=== PATIENT | male | born 1955 | race Caucasian/White ===

== ENCOUNTER 2020-03-21 09:36 | Emergency (ER) | payer MEDICARE, BC ==
[2020-03-21] MEDS: Ketorolac 30 MG/ML SDV IVPUSH ONE (09:50)
[2020-03-21 10:14] LABS: CHLORIDE,CL 96 mEq/L (98-106); SODIUM,NA 134 mEq/L (136-145)
[2020-03-21] MEDS: fentaNYL 100 MCG/2 ML SDV IVPUSH ONE ×2 (10:24→10:25)
[2020-03-21] MEDS: Metoprolol Tartrate 5 MG/5 ML SDV IVPUSH ONE (10:47)
[2020-03-21] MEDS: Acetaminophen/oxyCODONE 325-5 MG Tab PO ONE (11:03)
[2020-03-21] MEDS: Labetalol 100 MG/20 ML MDV IVPUSH ONE ×2 (11:23→12:01)
[2020-03-21] MEDS: Morphine 2 MG/ML Syringe IVPUSH ONE ×2 (11:28→12:54)
--- NOTE | 2020-03-21 12:12 | EDM.PDOC ---
ED HPI GENERAL MEDICAL PROBLEM - General Chief Complaint: General Stated Complaint: MUSCLE ACHES Time Seen by Provider: 03/21/20 10:00 Source of Information: Reports: Patient History Limitations: Reports: No Limitations - History of Present Illness INITIAL COMMENTS - FREE TEXT/NARRATIVE: Tico is a 65 yo male with PMH significant for atrial fibrillation anticoagulated on Xarelto and hypertension, who presents to the ED with c/o pain radiating down his back. Reports he had sudden onset of severe posterior headache around 6 pm last evening, lasting throughout the evening. Reports he was unable to sleep due to the pain. He also reports throughout the evening he had an "upset stomach." Does report some mild pain in his RUQ underneath his right ribs. Denies any N/V/D. This morning he reports onset up mid neck pain that gradually progressed from his neck down to his lower back. At time of presentation, patient reports headache and upper back pain has seemingly resolved, but now he has excruciating low back pain. Throughout ED visit, patient reports his bilateral lower extremities have gone numb. Has waxing and waning episodes of weakness. No other neurological symptoms. No weakness or paresthesias of upper extremities. No speech deficits, vision changes, cognitive impairment. Onset Date: 03/20/20 Onset Time: 18:00 Duration: Getting Worse, Waxing/Waning Location: Reports: Back, Lower Extremity, Left, Lower Extremity, Right Quality: Reports: Sharp, Stabbing Severity: Severe Improves with: Reports: None Associated Symptoms: Reports: Headaches, Weakness. 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 Bilateral Back Pain Score (Numeric/FACES): 9 - Related Data Allergies Allergy/AdvReac Type Severity Reaction Status Date / Time No Known Allergies Allergy Verified 03/21/20 09:41 Home Meds: Home Meds Glucosam/Chondr/Collagn/Hyalur [Glucosamine & Chondroitin Cap] 1 each PO DAILY 12/17/15 [History] Metoprolol Tartrate [Lopressor] 100 mg PO DAILY 12/17/15 [History] Multivitamin [Multi-Vitamin Daily] 1 each PO DAILY 12/17/15 [History] [place]-3/DHA/Epa/Fish Oil [Fish Oil 1,400 MG Softgel] 1 each PO DAILY 12/17/15 [ History] Rivaroxaban [Xarelto] 1 tab PO DAILY 12/17/15 [History] Ubidecarenone [Co Q-10] 100 mg PO DAILY 12/17/15 [History] hydroCHLOROthiazide [Hydrochlorothiazide] 25 mg PO DAILY 03/21/20 [History] Past Medical History Cardiovascular History: Reports: Afib, High Cholesterol, Hypertension Social & Family History - Tobacco Use Smoking Status *Q: Never Smoker - Caffeine Use Caffeine Use: Reports: None - Recreational Drug Use Recreational Drug Use: No ED ROS GENERAL - Review of Systems Review Of Systems: See Below Constitutional: Reports: Malaise, Weakness. Denies: Fever, Fatigue, Decreased Appetite HEENT: Reports: No Symptoms. Denies: Vision Change Respiratory: Reports: No Symptoms. Denies: Shortness of Breath, Wheezing, Pleuritic Chest Pain, Cough, Sputum Cardiovascular: Reports: Blood Pressure Problem. Denies: Chest Pain, Dyspnea on Exertion, Edema, Lightheadedness, Palpitations, Syncope Endocrine: Denies: Fatigue GI/Abdominal: Reports: Abdominal Pain. Denies: Constipation, Diarrhea, Decreased Appetite, Hematemesis, Hematochezia, Melena, Nausea, Vomiting : Reports: No Symptoms. Denies: Frequency, Incontinence, Urgency, Urinary Retention Musculoskeletal: Reports: Neck Pain, Leg Pain, Muscle Stiffness Skin: Reports: No Symptoms Neurological: Reports: Headache, Numbness, Paresthesia, Tingling, Difficulty Walking, Weakness. Denies: Confusion, Dizziness, Tremors Psychiatric: Reports: No Symptoms Hematologic/Lymphatic: Reports: No Symptoms Immunologic: Reports: No Symptoms ED EXAM, GENERAL - Physical Exam Exam: See Below Exam Limited By: No Limitations General Appearance: Alert, WD/WN, Moderate Distress Eye Exam: Bilateral Eye: EOMI, Normal Fundi, Normal Inspection, PERRL Ears: Normal External Exam, Normal Canal, Hearing Grossly Normal, Normal TMs Nose: Normal Inspection, Normal Mucosa, No Blood Throat/Mouth: Normal Inspection, Normal Lips, Normal Teeth, Normal Gums, Normal Oropharynx, Normal Voice, No Airway Compromise Head: Atraumatic, Normocephalic Neck: Normal Inspection, Supple, Non-Tender, Full Range of Motion. No: Lymphadenopathy (L), Lymphadenopathy (R), Tender Lateral, Tender Midline Respiratory/Chest: No Respiratory Distress, Lungs Clear, Normal Breath Sounds, No Accessory Muscle Use, Chest Non-Tender Cardiovascular: Normal Peripheral Pulses, No Murmur, Tachycardia, Irregularly Irregular, Other (trace edema RLE) Peripheral Pulses: 2+: Radial (L), Radial (R), Posterior Tibial (L), Posterior Tibial (R), Dorsalis Pedis (L), Dorsalis Pedis (R) GI/Abdominal: Normal Bowel Sounds, Soft, Non-Tender, No Organomegaly, No Distention, No Abnormal Bruit, No Mass Back Exam: Normal Inspection, Decreased Range of Motion, Muscle Spasm. No: CVA Tenderness (L), CVA Tenderness (R), Paraspinal Tenderness, Vertebral Tenderness Extremities: Normal Inspection, Non-Tender, Pedal Edema (trace RLE), Leg Pain, Other (waxing and waning weakness BLE, see note) Neurological: Alert, Oriented, CN II-XII Intact, Normal Cognition, Abnormal Gait , Sensory/Motor Deficit (waxing and waning weakness BLE, initialyl strength 4/5 with episodes 2/5) Psychiatric: Normal Affect, Normal Mood Skin Exam: Warm, Dry, Intact, Normal Color, No Rash Lymphatic: No Adenopathy Course - Vital Signs Last Recorded V/S: Last Vital Signs Temp 95.8 F L 03/21/20 12:44 Pulse 120 H 03/21/20 12:44 Resp 18 03/21/20 12:44 BP 165/110 H 03/21/20 12:44 Pulse Ox 98 03/21/20 12:44 - Orders/Labs/Meds Orders: Active Orders 24 hr Category Date Time Status EKG Documentation Completion [RC] STAT Care 03/21/20 10:05 Active Ang Abdomen [CT] Stat Exams 03/21/20 11:08 Ordered CTA Chest W WO Contrast [Ang Chest] [CT] Stat Exams 03/21/20 11:08 Ordered Head wo Cont [CT] Stat Exams 03/21/20 11:06 Taken CORONAVIRUS COVID-19 PCR PHL Routine Lab 03/21/20 10:00 Received UA W/SEGUN RFLX IF INDICATED [URIN] Stat Lab 03/21/20 09:44 Ordered Labs: Laboratory Tests 03/21/20 03/21/20 03/21/20 Range/Units 10:00 10:00 10:00 WBC 13.7 H (5.0-10.0) 10^3/uL RBC 5.50 (4.50-6.00) 10^6/uL Hgb 17.0 (14.0-18.0) g/dL Hct 47.5 (40.0-54.0) % MCV 86.4 (82.0-94.0) fL MCH 30.9 (27.0-32.0) pg MCHC 35.8 (33.0-38.0) g/dL RDW Coeff of Aníbal 12.1 (11.0-15.0) % Plt Count 252 (150-400) 10^3/uL Neut % (Auto) 72.1 (35-85) % Lymph % (Auto) 19.4 (10-55) % Jewell % (Auto) 7.9 (0-16) % Eos % (Auto) 0.4 (0-5) % Baso % (Auto) 0.2 (0-3) % Neut # (Auto) 9.87 H (1.80-7.00) 10^3/uL Lymph # (Auto) 2.66 (1.00-4.80) 10^3/uL Jewell # (Auto) 1.08 H (0.00-0.80) 10^3/uL Eos # (Auto) 0.05 (0.00-0.45) 10^3/uL Baso # (Auto) 0.03 10^3/uL Sodium 134 L (136-145) mEq/L Potassium 3.2 L (3.5-5.0) mEq/L Chloride 96 L (98-106) mEq/L Carbon Dioxide 27 (21-32) mmol/L BUN 13 (7-18) mg/dL Creatinine 1.1 (0.7-1.3) mg/dL Est Cr Clr Drug Dosing 65.17 mL/min Estimated GFR (MDRD) > 60 (>=60) mL/min Glucose 148 H D (75-99) mg/dL Calcium 9.5 (8.4-10.1) mg/dL Magnesium 1.9 (1.8-2.4) mg/dL Total Bilirubin 0.6 (0.0-1.0) mg/dL AST 26 (15-37) U/L ALT 35 (12-78) U/L Alkaline Phosphatase 87 (46-116) U/L Lactate Dehydrogenase 200 H (100-190) U/L Creatine Kinase 74 (35-232) U/L Troponin I < 0.017 (0.00-0.06) ng/mL C-Reactive Protein 0.5 (0.2-0.8) mg/dL Total Protein 7.8 (6.4-8.2) g/dL Albumin 3.8 (3.4-5.0) g/dL Meds: Medications Discontinued Medications Generic Name Dose Route Start Last Admin Trade Name Freq PRN Reason Stop Dose Admin Fentanyl 50 mcg 03/21/20 10:14 03/21/20 10:24 Sublimaze IVPUSH 03/21/20 10:15 50 mcg ONETIME ONE Administration Fentanyl 50 mcg 03/21/20 10:27 03/21/20 10:25 Sublimaze IVPUSH 03/21/20 10:28 50 mcg ONETIME ONE Administration Iopamidol 100 ml 03/21/20 13:25 [id number] (76%) IVPUSH 03/21/20 13:26 ONETIME ONE Ketorolac Tromethamine 30 mg 03/21/20 09:58 03/21/20 09:50 Toradol IVPUSH 03/21/20 09:59 30 mg ONETIME ONE Administration Labetalol HCl 10 mg 03/21/20 11:19 03/21/20 11:23 Normodyne IVPUSH 03/21/20 11:20 10 mg ONETIME ONE Administration Protocol Labetalol HCl 10 mg 03/21/20 12:00 03/21/20 12:01 Normodyne IVPUSH 03/21/20 12:01 10 mg ONETIME ONE Administration Protocol Metoprolol Tartrate 2.5 mg 03/21/20 10:40 03/21/20 10:47 Lopressor IVPUSH 03/21/20 10:41 2.5 mg ONETIME ONE Administration Morphine Sulfate 4 mg 03/21/20 11:19 03/21/20 11:28 Morphine IVPUSH 03/21/20 11:20 4 mg ONETIME ONE Administration Morphine Sulfate 2 mg 03/21/20 12:51 03/21/20 12:54 Morphine IVPUSH 03/21/20 12:52 2 mg ONETIME ONE Administration Orphenadrine Citrate 60 mg 03/21/20 10:27 03/21/20 10:32 Norflex IV 03/21/20 10:28 60 mg STAT ONE Administration Oxycodone/Acetaminophen 1 tab 03/21/20 10:56 03/21/20 11:03 Percocet 325-5 Mg PO 03/21/20 10:57 1 tab ONETIME ONE Administration - Radiology Interpretation Free Text/Narrative:: No acute findings on head CT or CTA of chest, abdomen, or pelvis. CT Results Date: 03/21/20 CT Results Time: 12:45 - Re-Assessments/Exams Free Text/Narrative Re-Assessment/Exam: Discussed risks and benefits of transfer with patient. Risks of transfer include worsening of condition, , and helicopter crash enroute. Benefits of transfer include higher level of care with neurologic consultation. Risks of nontransfer include worsening of condition, , and no interventional therapy. Benefits of nontransfer include convenience. Patient verbalized understanding and was agreeable with air transfer to [facility]. Departure - Departure Time of Disposition: 12:46 Disposition: DC/Tfer to [facility] 02 Condition: Undetermined Clinical Impression: Weakness of both lower limbs, Paresthesia of bilateral legs Headache Qualifiers: Headache type: unspecified Headache chronicity pattern: acute headache Back pain Qualifiers: Back pain location: low back pain Chronicity: acute Back pain laterality: bilateral Sciatica laterality: bilateral sciatica - Discharge Information *PRESCRIPTION DRUG MONITORING PROGRAM REVIEWED*: Not Applicable *COPY OF PRESCRIPTION DRUG MONITORING REPORT IN PATIENT ALIYA: Not Applicable Referrals: Marjan Vuong, [facility] [employer] [Primary Care Provider] - Forms: ED Department Discharge Sepsis Event Note - Evaluation Sepsis Screening Result: No Definite Risk - Focused Exam Vital Signs: Vital Signs Temp Pulse Pulse Resp BP BP BP 03/21/20 12:44 95.8 F L 120 H 18 165/110 H 03/21/20 12:17 140/95 H 03/21/20 12:10 128/101 H 03/21/20 11:50 160/112 H 03/21/20 11:30 94.3 F L 128 H 18 172/118 H 168/122 H 03/21/20 11:01 172/122 H 03/21/20 10:47 126 H 152/108 H 152/108 H 03/21/20 09:37 97.1 F 117 H 18 156/104 H Pulse Ox 03/21/20 12:44 98 03/21/20 12:17 03/21/20 12:10 03/21/20 11:50 03/21/20 11:30 98 03/21/20 11:01 97 03/21/20 10:47 03/21/20 09:37 96 Date Exam was Performed: 03/21/20 Time Exam was Performed: 13:37 - Problem List & Annotations (1) Back pain SNOMED Code(s): 856238605 Code(s): M54.9 - DORSALGIA, UNSPECIFIED Status: Acute Current Visit: Yes Qualifiers: Back pain location: low back pain Chronicity: acute Back pain laterality : bilateral Sciatica laterality: bilateral sciatica (2) Paresthesia of bilateral legs SNOMED Code(s): 319193190, 89643191782554569, 20625469710883700 Code(s): R20.2 - PARESTHESIA OF SKIN Status: Acute Current Visit: Yes (3) Hypertension SNOMED Code(s): 72393916 Code(s): I10 - ESSENTIAL (PRIMARY) HYPERTENSION Status: Acute Current Visit: Yes Qualifiers: Hypertension type: essential hypertension Qualified Code(s): I10 - Essential (primary) hypertension (4) Weakness of both lower limbs SNOMED Code(s): 5866616 Code(s): R29.898 - OTH SYMPTOMS AND SIGNS INVOLVING THE MUSCULOSKELETAL SYSTEM Status: Acute Priority: High Current Visit: Yes (5) Atrial fibrillation with rapid ventricular response SNOMED Code(s): 297643382084507 Code(s): I48.91 - UNSPECIFIED ATRIAL FIBRILLATION Status: Acute Current Visit: Yes (6) Headache SNOMED Code(s): 08166201 Code(s): R51 - HEADACHE Status: Acute Current Visit: Yes Qualifiers: Headache type: unspecified Headache chronicity pattern: acute headache - My Orders Last 24 Hours: My Active Orders 03/21/20 09:44 UA W/SEGUN RFLX IF INDICATED [URIN] Stat 03/21/20 10:00 CORONAVIRUS COVID-19 PCR PHL Routine 03/21/20 10:05 EKG Documentation Completion [RC] STAT 03/21/20 11:06 Head wo Cont [CT] Stat 03/21/20 11:08 Ang Abdomen [CT] Stat CTA Chest W WO Contrast [Ang Chest] [CT] Stat - Assessment/Plan Last 24 Hours: My Active Orders 03/21/20 09:44 UA W/SEGUN RFLX IF INDICATED [URIN] Stat 03/21/20 10:00 CORONAVIRUS COVID-19 PCR PHL Routine 03/21/20 10:05 EKG Documentation Completion [RC] STAT 03/21/20 11:06 Head wo Cont [CT] Stat 03/21/20 11:08 Ang Abdomen [CT] Stat CTA Chest W WO Contrast [Ang Chest] [CT] Stat Assessment:: Back Pain Weakness and Paresthesias of BLE Headache Hypertension Atrial Fibrillation with RVR Plan: 65 yo male who presented to ED with c/o low back pain. Initially upon presentation he was ambulatory, but appeared uncomfortable. Was making frequent movements in attempt to get comfortable. Seemed to have less pain in position. Was given 30 mg Toradol and 60 mg IV Norflex without any improvement in pain. After approximately 45 minutes in ED, patient developed numbness and weakness in BLE, R slightly worse than L, which initially did improve and then recurred multiple times throughout ED visit. Was very difficult to manage patient's pain. Patient then developed worsening of lower back pain with saddle paresthesia and flaccid paralysis of BLE. No loss of bowel/bladder. Patient was given total of 100 mcg fentanyl, 30 mg Toradol, 60 mg Norflex, 5 mg Percocet and 6 mg morphine throughout ED stay. Did have improvement in pain with morphine and was then able to rest comfortably enough to have CT. Patient hypertensive upon presentation. EKG revealed atrial fibrillation with RVR, 120's-140s throughout stay. Did receive 2.5 mg Lopressor and total of 20 mg labetalol. BP improved some for short time, but was elevated again upon arrival of air med crew. Labs unremarkable aside from WBC 13.7, L 3.2, and Na 134. Cardiac enzymes negative. Once patient developed worsening weakness/numbness of BLE, consulted with Nomi Tyler who assessed the patient over the camera. Recommended CT head as well as CTA chest, abdomen, pelvis with worsening weakness of BLE to r/u dissection. CT head, CTA chest/abdomen/pelvis all negative for acute changes. Patient denies any FH of MS or any other neurologic conditions. Has not had any known sick contacts. Did recently have 30+ hr car ride home from [place]. Returned home Tuesday. Has been quarantined at his home in [place] for the past month and then quarant[place] since arriving home Tuesday. Has no COVID- 19 symptoms outside of headache. Did opt to screen patient given recent travel. Denies any injury. Consulted with [facility], who recommended STAT MRI brain, cervical thoracic and lumbar spine. Patient unable to sit still due to pain. We are unable to complete sedated MRI here. Requested transfer. Then consulted with Dr. Jimenez ED physician, who accepted the patient for transfer. Will arrange for helicopter transfer given saddle paresthesia and flaccid paralysis of BLE. Patient will be transferred to [facility] via [facility]. Patient stable upon discharge. Did have ongoing numbness and weakness in BLE as well as saddle paresthesia.
[2020-03-21 12:44] VITALS: BP 165/110; PULSE 120
[2020-03-21] MEDS: Iopamidol 755 Mg/ML 100 ML Bottle IVPUSH ONE (13:42)
== END 2020-03-21 13:08 ==
LOC: CC.ED 09:36
DX: M54.42 Lumbago with sciatica, left side (principal); M54.41 Lumbago with sciatica, right side; R51 Headache; M62.81 Muscle weakness (generalized); R20.2 Paresthesia of skin; Z79.01 Long term (current) use of anticoagulants; I10 Essential (primary) hypertension; Z79.899 Other long term (current) drug therapy; I48.91 Unspecified atrial fibrillation
CPT/HCPCS: 36415; 70450; 71275; 74175; 80053; 82550; 83615; 83735; 84484; 85025; 86140; 93005; 96374; 96375; 96376; 99285; A9270; J1885; J2270; J2360; J3010; J3490; Q9967; U0002; 99284

== ENCOUNTER 2021-05-04 21:57 | Emergency (ER) | payer MEDICARE, BC ==
--- NOTE | 2021-05-04 22:27 | EDM.PDOC ---
ED HPI GENERAL MEDICAL PROBLEM - General Chief Complaint: General Stated Complaint: SOB Time Seen by Provider: 05/04/21 22:25 Source of Information: Reports: Patient History Limitations: Reports: No Limitations - History of Present Illness INITIAL COMMENTS - FREE TEXT/NARRATIVE: Tico is a 66 year old male who presents to the ED with c/o shortness of breath and cough. He reports that starting about 2 days ago he began coughing. Reports throughout the day today he has gotten more short of breath. Reports when he lies down, cough is worse and he feels more short of breath. He denies any chest pain, fever, dizziness, weakness. Has had the chills. Does have hx of atrial fibrillation. Is not currently anticoagulated. Xarelto was stopped in the past due to spinal hematoma. He has a Watchman device now. He has been using Robitussin at home for cough. Onset Date: 05/02/21 Duration: Getting Worse Location: Reports: Chest Associated Symptoms: Reports: Cough, cough w sputum, Fever/Chills (chills, no fever), Shortness of Breath. Denies: Chest Pain, Diaphoresis, Malaise, Nausea/Vomiting, Syncope, Weakness - Related Data Allergies Allergy/AdvReac Type Severity Reaction Status Date / Time No Known Allergies Allergy Verified 05/04/21 21:59 Home Meds: Home Meds Metoprolol Tartrate [Lopressor] 25 mg PO DAILY 12/17/15 [History] Multivitamin [Multi-Vitamin Daily] 1 each PO DAILY 12/17/15 [History] Aspirin [Halfprin] 81 mg PO DAILY 05/04/21 [History] Doxycycline [Vibra-Tabs] 100 mg PO Q12HR 7 Days #14 tab 05/04/21 [Rx] Levothyroxine Sodium [Synthroid] 25 mcg PO DAILY 05/04/21 [History] Loratadine [Claritin] 10 mg PO DAILY PRN 05/04/21 [History] Pregabalin [Lyrica] 150 mg PO BID 05/04/21 [History] predniSONE [Prednisone] 20 mg PO DAILY #5 tablet 05/04/21 [Rx] Past Medical History Cardiovascular History: Reports: Afib, High Cholesterol, Hypertension Neurological History: Reports: Other (See Below) (spinal hematoma) - Past Surgical History Musculoskeletal Surgical History: Reports: Other (See Below) Other Musculoskeletal Surgeries/Procedures:: back surgury for hematoma Social & Family History - Family History Family Medical History: No Pertinent Family History - Caffeine Use Caffeine Use: Reports: None ED ROS GENERAL - Review of Systems Review Of Systems: See Below Constitutional: Reports: Chills HEENT: Reports: Rhinitis Respiratory: Reports: Shortness of Breath, Cough, Sputum. Denies: Wheezing, Pl euritic Chest Pain, Hemoptysis Cardiovascular: Reports: Dyspnea on Exertion, Edema, Orthopnea. Denies: Chest Pain Endocrine: Reports: Fatigue GI/Abdominal: Reports: No Symptoms : Reports: No Symptoms Musculoskeletal: Reports: No Symptoms Skin: Reports: No Symptoms Neurological: Reports: No Symptoms Psychiatric: Reports: No Symptoms Hematologic/Lymphatic: Reports: No Symptoms Immunologic: Reports: No Symptoms ED EXAM, GENERAL - Physical Exam Exam: See Below Exam Limited By: No Limitations General Appearance: Alert, WD/WN, No Apparent Distress Eye Exam: Bilateral Eye: EOMI, Normal Fundi, Normal Inspection, PERRL Nose: Nasal Swelling, Nasal Drainage Throat/Mouth: Normal Inspection, Normal Lips, Normal Teeth, Normal Gums, Normal Oropharynx, Normal Voice, No Airway Compromise Head: Atraumatic, Normocephalic Neck: Normal Inspection, Supple, Non-Tender, Full Range of Motion Respiratory/Chest: No Respiratory Distress, No Accessory Muscle Use, Chest Non- Tender, Decreased Breath Sounds (bialteral bases), Crackles (LLL) Cardiovascular: Normal Peripheral Pulses, Tachycardia, Irregularly Irregular GI/Abdominal: Normal Bowel Sounds, Soft, Non-Tender, No Organomegaly, No Distention, No Abnormal Bruit, No Mass Back Exam: Normal Inspection, Full Range of Motion, NT Extremities: Normal Inspection, Normal Range of Motion, Normal Capillary Refill, Pedal Edema (trace RLE) Neurological: Alert, Oriented, CN II-XII Intact, Normal Cognition, Normal Gait, Normal Reflexes, No Motor/Sensory Deficits Psychiatric: Normal Affect, Normal Mood Skin Exam: Warm, Dry, Intact, Normal Color, No Rash Lymphatic: No Adenopathy Course - Vital Signs Last Recorded V/S: Last Vital Signs Temp 97.2 F 05/04/21 22:22 Pulse 115 H 05/04/21 22:22 Resp 22 H 05/04/21 22:22 BP 169/113 H 05/04/21 22:22 Pulse Ox 92 L 05/04/21 22:22 - Orders/Labs/Meds Orders: Active Orders 24 hr Category Date Time Status Chest 2V [CR] Stat Exams 05/04/21 22:14 Taken Labs: Laboratory Tests 05/04/21 05/04/21 05/04/21 Range/Units 22:28 22:28 22:28 WBC 9.0 (4.0-11.0) 10^3/uL RBC 5.19 (4.50-6.00) x10^6/uL Hgb 14.4 (14.0-18.0) g/dL Hct 43.4 (42.0-52.0) % MCV 83.6 (83.0-97.0) fL MCH 27.7 (27.0-32.0) pg MCHC 33.2 (32.0-36.0) g/dL RDW Coeff of Aníbal 13.9 (11.0-15.0) % Plt Count 198 (150-400) 10^3/uL Immature Gran % (Auto) 0.1 (0.0-4.9) % Neut % (Auto) 84.0 H (41-71) % Lymph % (Auto) 9.4 L (24-44) % Evans % (Auto) 6.1 (0-10) % Eos % (Auto) 0.1 (0-6) % Baso % (Auto) 0.3 (0-1) % Neut # (Auto) 7.56 (1.80-8.00) x10^3/uL Lymph # (Auto) 0.85 (0.60-5.00) 10^3/uL Evans # (Auto) 0.55 (0.00-1.50) 10^3/uL Eos # (Auto) 0.01 (0.00-1.50) 10^3/uL Baso # (Auto) 0.03 (0.00-0.50) 10^3/uL Immature Gran # (Auto) 0.01 (0.00-0.49) 10^3/uL Sodium 134 L (136-145) mEq/L Potassium 4.5 (3.5-5.0) mEq/L Chloride 96 L (98-106) mEq/L Carbon Dioxide 29 (21-32) mmol/L BUN 11 (7-18) mg/dL Creatinine 1.1 (0.7-1.3) mg/dL Est Cr Clr Drug Dosing 66.36 mL/min Estimated GFR (MDRD) > 60 (>=60) mL/min Glucose 124 H (75-99) mg/dL Calcium 8.3 L (8.4-10.1) mg/dL Total Bilirubin 0.7 (0.0-1.0) mg/dL AST 19 (15-37) U/L ALT 24 (12-78) U/L Alkaline Phosphatase 91 (46-116) U/L Lactate Dehydrogenase 175 (100-190) U/L Creatine Kinase 69 (35-232) U/L Troponin I < 0.017 (0.00-0.06) ng/mL C-Reactive Protein 7.7 H (0.2-0.8) mg/dL Total Protein 7.2 (6.4-8.2) g/dL Albumin 3.3 L (3.4-5.0) g/dL SARS CoV-2 RNA Rapid LALO Negative (NEGATIVE) Meds: Medications Discontinued Medications Generic Name Dose Route Start Last Admin Trade Name Freq PRN Reason Stop Dose Admin Albuterol/Ipratropium 3 ml 05/04/21 23:03 05/04/21 23:14 Albuterol/Ipratropium 3.0-0.5 Mg/3 Ml Neb Soln NEB 05/04/21 23:04 3 ml ONETIME ONE Administration Ceftriaxone Sodium 1 gm 05/04/21 23:02 05/04/21 23:14 Ceftriaxone 1 Gm Vial IVPUSH 05/04/21 23:03 1 gm STAT STA Administration Methylprednisolone Sodium Succinate 62.5 mg 05/04/21 23:02 05/04/21 23:14 Methylprednisolone Sodium Succinate 125 Mg/2 Ml Sdv IVPUSH 05/04/21 23:03 62.5 mg STAT STA Administration - Re-Assessments/Exams Free Text/Narrative Re-Assessment/Exam: 05/04/21 23:02 Patient declines admission. Wishes to go home. Departure - Departure Time of Disposition: 23:03 Disposition: Home, Self-Care 01 Condition: Fair Clinical Impression: Pneumonitis, Atrial fibrillation with rapid ventricular response Hypertension Qualifiers: Hypertension type: essential hypertension Qualified Code(s): I10 - Essential (primary) hypertension - Discharge Information *PRESCRIPTION DRUG MONITORING PROGRAM REVIEWED*: Not Applicable *COPY OF PRESCRIPTION DRUG MONITORING REPORT IN PATIENT ALIYA: Not Applicable Prescriptions: predniSONE [Prednisone] 20 mg PO DAILY #5 tablet Doxycycline [Vibra-Tabs] 100 mg PO Q12HR 7 Days #14 tab Instructions: Pneumonitis Referrals: Rodolfo Turner MD [Primary Care Provider] - Forms: ED Department Discharge Additional Instructions: - Start antibiotic & steroid tomorrow. Can be picked up at pharmacy - Rest and push fluids - May continue to use Robitussin as needed for cough - Recommend increase Metoprolol to 50 mg daily as pulse is high - Follow up for recheck tomorrow if symptoms persist otherwise recheck in the next 2-3 days to ensure BP and pulse normalized - Return to ED for emergent needs - Problem List & Annotations (1) Atrial fibrillation with rapid ventricular response SNOMED Code(s): 406788620757630 Code(s): I48.91 - UNSPECIFIED ATRIAL FIBRILLATION Status: Acute (2) Hypertension SNOMED Code(s): 13348197 Code(s): I10 - ESSENTIAL (PRIMARY) HYPERTENSION Status: Acute Qualifiers: Hypertension type: essential hypertension Qualified Code(s): I10 - Essential (primary) hypertension (3) Pneumonitis SNOMED Code(s): 878137481 Code(s): J18.9 - PNEUMONIA, UNSPECIFIED ORGANISM Status: Acute - Problem List Review Problem List Initiated/Reviewed/Updated: Yes - My Orders Last 24 Hours: My Active Orders 05/04/21 22:14 Chest 2V [CR] Stat - Assessment/Plan Last 24 Hours: My Active Orders 05/04/21 22:14 Chest 2V [CR] Stat Assessment:: Afib with RVR Hypertension Pneumonitis Plan: 66 yo male presents to the clinic with c/o cough and shortness of breath for the past few days. Lab work reveals WBC 9.0, CRP 7.7, Na 134. Covid negative. Patient O2 sat upon arrival 93%. Did go to 91% with minimal activity. CXR negative for infiltrate. EKG reveals Afib with RVR. Rates in low 100s. BP elevated. Recommend patient be admitted for ongoing medical management. Patient declines admission and wishes to go home with outpatient therapy. Will cover patient for pneumonia. Meds as directed. Recommend he increase his metoprolol to 50 mg daily. Recommend close follow up with PCP. Needs recheck of pulse, BP and O2 sats in the next few days. He is advised to return for reevaluation if symptoms worsen or he begins struggling to breathe. Patient and verbalized understanding and were agreeable with plan. Patient discharged from facility in stable condition.
[2021-05-04 22:29] VITALS: BP 169/113; PULSE 115
[2021-05-04 22:41] LABS: CHLORIDE,CL 96 mEq/L (98-106); SODIUM,NA 134 mEq/L (136-145)
[2021-05-04] MEDS: cefTRIAXone 1 GM Vial IVPUSH STA (23:14)
[2021-05-04] MEDS: methylPREDNISolone Sodium Succinate 125 MG/2 ML SDV IVPUSH STA (23:14)
[2021-05-04] MEDS: Albuterol/Ipratropium 3.0-0.5 MG/3 ML Neb Soln NEB ONE (23:14)
== END 2021-05-04 22:30 | disposition home or self-care (01) ==
LOC: CC.ED 21:57
DX: J18.9 Pneumonia, unspecified organism (principal); I48.91 Unspecified atrial fibrillation; I10 Essential (primary) hypertension; Z79.82 Long term (current) use of aspirin; Z79.899 Other long term (current) drug therapy; Z20.822 Contact with and (suspected) exposure to COVID-19
CPT/HCPCS: 36415; 71046; 80053; 82550; 83615; 84484; 85025; 86140; 93005; 94640; 96374; 96375; 99285-25; J0696; J2930; J7620-GY; U0002